=== PATIENT | male | born 1950 | race Hispanic/Latino ===

== ENCOUNTER 2017-11-05 18:29 | Observation (INO) | payer OTHER ==
[~2017-11-05] VITALS: Ht 170.2 cm; Wt 74.4 kg
[2017-11-05] MEDS ORDERED: SODIUM CHLORIDE 0.9% 1000ML 1,000 ML IV STA (18:32)
[2017-11-05] MEDS ORDERED: ASPIRIN 81 MG CHEW TAB PO ONE (18:45)
[2017-11-05 18:50] LABS: BASOPHILS % 0.2 % (0.0-1.0); EOSINOPHILS # (AUTO) 0.1 (0.0-0.4); EOSINOPHILS % 1.5 % (0.0-6.0); HEMATOCRIT 40.1 % (38.2-49.6); HEMOGLOBIN 13.9 g/dL (14.0-18.0); LYMPHOCYTES # (AUTO) 3.1 (1.0-3.2); LYMPHOCYTES % 35.5 % (18.0-39.1); MEAN CORPUSCULAR HEMOGLOBIN 33.1 pg (28-32); MEAN CORPUSCULAR HGB CONC 34.7 g/dL (31-35); MEAN CORPUSCULAR VOLUME 95.5 fL (81-99); MONOCYTES # (AUTO) 0.5 (0.2-0.8); MONOCYTES % 5.9 % (4.4-11.3); NEUTROPHILS # (AUTO) 4.9 (2.1-6.9); NEUTROPHILS % 56.4 % (38.7-80.0); PLATELET COUNT 181 x10e3/uL (140-360); RED CELL DISTRIBUTION WIDTH 12.8 % (11.7-14.4)
[2017-11-05 19:08] LABS: ALANINE AMINOTRANSFERASE 37 IU/L (0-55); ALBUMIN/GLOBULIN RATIO 1.3 (0.8-2.0); ALKALINE PHOSPHATASE 81 IU/L (40-150); ANION GAP 15.9 mmol/L (8-16); BLOOD UREA NITROGEN 16 mg/dL (7-26); BUN/CREATININE RATIO 15 (6-25); CALCIUM 9.2 mg/dL (8.4-10.2); CARBON DIOXIDE 21 mmol/L (22-29); CHLORIDE 108 mmol/L (98-107); CREATININE, SERUM 1.09 mg/dL (0.72-1.25); EST GLOMERULAR FILTRATION RATE > 60 ML/MIN (60-); GLUCOSE 92 mg/dL (74-118); POTASSIUM 3.9 mmol/L (3.5-5.1); SODIUM 141 mmol/L (136-145)
--- NOTE | 2017-11-05 19:42 | Diagnostic Imaging Report ---
EXAMINATION: CHEST SINGLE (PORTABLE) COMPARISON: None INDICATION: Trauma DISCUSSION: Frontal view of the chest obtained at 1913 hours. HEART AND MEDIASTINUM: The cardiomediastinal silhouette is unremarkable. LINES: None. LUNGS: The lungs are well inflated and clear. No infiltrates or pulmonary edema. PLEURA: No pleural effusion or pneumothorax. BONES AND SOFT TISSUES: No evidence of displaced fracture or focal osseous lesion. The soft tissues are normal. IMPRESSION: No acute traumatic pathology by x-ray. Signed by: Dr. Vimal Spencer MD on 11/05/2017 7:38 PM
--- NOTE | 2017-11-05 19:44 | Diagnostic Imaging Report ---
Ankle complete CPT CODE: 46792 HISTORY: Trauma TECHNIQUE: Three views right ankle obtained COMPARISON: None. FINDINGS: The distal tibia and fibula appear intact. Ankle mortise remains symmetric. There is lateral malleolar soft tissue swelling and edema about the tibiotalar joint. The calcaneus appears intact. The visualized portions of the midfoot and forefoot are intact. IMPRESSION: No evidence of acute fracture or dislocation involving the ankle. If there is persistent pain or clinical concern, recommend repeat imaging to identify any occult fractures. Signed by: Dr. Vimal Spencer MD on 11/05/2017 7:41 PM
--- NOTE | 2017-11-05 19:50 | Diagnostic Imaging Report ---
EXAMINATION: Head CT without contrast. HISTORY:Status post fall from ladder, syncope. COMPARISON:None. TECHNIQUE: Multidetector axial images were obtained from the foramen magnum to the vertex without contrast. The images were reconstructed using brain and bone algorithms. Thin section brain images were reformatted into coronal and sagittal planes. Intravenous contrast: None IMAGE QUALITY: Suboptimal evaluation particularly of the skull base and posterior fossa structures due to streak artifacts. FINDINGS: Skull/scalp: No lytic or blastic. lesions. No surgical changes. Parenchyma: No abnormal density. No acute hemorrhage, mass or acute major vascular territorial infarct. Arteries: No density suggestive of thrombosis. Dural sinuses: No abnormal density suggestive of thrombosis. Ventricles: No hydrocephalus or displacement. Extra-axial spaces: No abnormal density. Brain volume: Mild generalized cerebral volume loss. Craniocervical junction: No mass, Chiari malformation, or basilar invagination. Sella: No mass. Paranasal/mastoid sinuses: Partial opacification and sclerosis of right mastoid air cells. Mild mucosal thickening in bilateral ethmoid sinuses IMPRESSION: No acute intracranial abnormality. Mild generalized cerebral volume loss. Signed by: Dr. Whitney Dotson M.D. on 11/05/2017 7:47 PM
--- NOTE | 2017-11-05 19:55 | Diagnostic Imaging Report ---
History: Fall from ladder. Comparison studies: None Technique: Axial images were obtained through the cervical region.. Coronal and sagittal images reconstructed from the axial data.. Intravenous contrast: None Findings: Fractures: None. Soft tissue injuries: None. Atlantoaxial articulation: Intact. Alignment: Loss of normal cervical lordosis is either positional or due to muscle spasm. No scoliosis. Cervicomedullary junction: No abnormalities. The foramen magnum is patent. Soft tissues: No abnormalities. Vertebrae: No fractures, infection or neoplasm. Degenerative changes: C5-C6: Mild degenerative disc disease. Mild right foraminal stenosis due to facet and uncovertebral arthrosis. C6-C7: Moderate degenerative disc disease with decreased intervertebral disc space, endplate sclerosis and anterior vertebral osteophyte. No canal stenosis. No significant foraminal stenosis.. IMPRESSION: 1. No acute cervical spine fracture. Loss of normal cervical lordosis is either positional or due to muscle spasm. 2. Ligament, spinal cord and or vascular abnormalities cannot be excluded on the basis of this examination. 3. Mild cervical spondylosis as above. Signed by: Dr. Whitney Dotson M.D. on 11/05/2017 7:52 PM
[2017-11-05] MEDS ORDERED: IOPAMIDOL 370 MG/ML 200 ML INFUS..BTL INJ ONE (20:01)
[2017-11-05] MEDS ORDERED: SODIUM CHLORIDE 0.9% 100 ML ONE (20:02)
--- NOTE | 2017-11-05 20:31 | Diagnostic Imaging Report ---
CT angiogram of the chest, abdomen and pelvis. CPT code number: [id number] History: Fell off ladder (6 feet). Technique: Multidetector helical CT angiography was carried out from the thoracic inlet to the lesser trochanters before and following intravenous contrast administration. Thin section image collimation was utilized and 3-D images were postprocessed on a separate workstation. Parenchymal organ imaging will be limited by arterial phase of contrast administration. RADIATION DOSE: Total DLP: 804.52 mGy*cm Estimated effective dose: (DLP x 0.015 x size factor) mSv CTDIvol has been reviewed. It is below the limits set by the Radiation Protocol Committee (RPC). Comparison: None CT scan thorax: Thyroid/base of neck: Unremarkable. Pleura: No pleural effusion or pneumothorax. Calcified and noncalcified bilateral pleural plaques. Heart: Normal in size. No mediastinal fluid or air. Moderate burden of coronary artery atherosclerosis. Lymph nodes: No enlarged axillary, supraclavicular, mediastinal, or hilar lymph nodes.. Pulmonary vessels: Normal morphology. No filling defects.. Pulmonary parenchyma: Mild hyperinflation. No contusion or laceration. Mild bilateral apical pleural-parenchymal thickening. Mild bronchial wall thickening suggestive of chronic bronchitis. No mass. CT scan of the abdomen: Liver: There is an area of rounded hypoattenuation involving segments 4, 8, and 5. Attenuation before contrast is 36 Hounsfield units suggestive of fat. No evidence of enhancement on this exam. There is no displacement of the intrahepatic vasculature. This area measures approximately 9.6 x 10.4 cm. No perihepatic fluid. Low attenuating lesion in the lateral aspect of segment 5 measures 8 mm. Hypervascular blush in segment 8 measures 14 mm and has the appearance of a shunt. Spleen: No contusion or laceration. No splenomegaly. Pancreas: Mild fatty atrophy without mass or ductal dilatation. Adrenal glands: No evidence for mass.. Gallbladder: Present. No wall thickening, gallstone or ductal dilatation.. Retroperitoneum: No hemorrhage.. Kidneys: No renal calculus. The kidneys enhance symmetrically. No mass or hydronephrosis. Bowel and mesentery: Small bowel and large bowel are normal in diameter with normal wall thickness. The stomach appears normal. The appendix is not visualized and may be absent or collapsed. No free fluid or fluid collection. CT scan pelvis: Urinary bladder: Circumferential mural thickening. No perivesicular inflammation. The prostate gland is enlarged. No ureteral dilatation.. Lymph nodes: No lymphadenopathy. No free fluid or fluid collection. No free air. Bones: The hips are intact and normally positioned. No diastases of the pubic symphysis or sacroiliac joints. The shoulders, clavicles, and sternum are intact. Vertebral body heights are symmetric. No listhesis. There are no displaced rib fractures. CT angiography with 3-D reformations: 1. Aortic sinus: 3.8 cm. 2. Sinotubular junction: 2.6 x 3.0 cm. 3. Proximal ascending aorta:2.8 x 2.9 cm 4. Proximal aortic arch:2.9 cm 5. Mid aortic arch:2.8 cm 6. Distal aortic arch:2.4 cm 7. Descending thoracic aorta:2.4 x 2.4 cm 8. Aorta at the diaphragm:2.3 x 2.4 cm 9. Aorta at the celiac artery:2.2 x 2.2 cm 10. Aorta at the cranial most renal artery:1.9 cm 11. Aorta at the caudal-most renal artery:1.9 cm 12. Infrarenal aorta: 1.7 x 1.8 cm 13. Bifurcation:1.5 x 1.7 cm 14. Morphology:No evidence of mural hematoma. Mild burden of atherosclerotic plaque in the abdominal aorta. The innominate artery and left common carotid artery arise from a common trunk. There is no evidence of dissection. No periaortic inflammation. 15. Great vessels are normal in morphology arising from the aortic arch. 16. Celiac artery is normal in appearance. There is conventional hepatic artery branching. 17. SMA is normal in appearance and widely patent. 18. Renal arteries: A single artery supplies the right kidney. 2 arteries supply the left kidney. Both are widely patent. 19. The BENI is patent. 20. The right and left common iliac arteries each measure 1.2 cm. The internal/external iliac arteries and common femoral arteries are normal in morphology. IMPRESSION: 1. No evidence of aortic injury. Mild burden of atherosclerosis of the aorta. Moderate burden of coronary artery atherosclerosis 2. No evidence of pulmonary or pleural injury. 3. No solid or hollow organ injury in the abdomen or pelvis. 4. 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 Consider periodic surveillance with CT of the chest to confirm stability. 5. Mild pulmonary hyperinflation suggestive of COPD. Mild chronic bronchitis. 6. Geographic area of hypoattenuation in the liver is suggestive of fat deposition. There is no secondary signs of hepatic injury. Further evaluation of the liver can be made with MRI on an outpatient basis. 7. Shunt and potential cyst in the liver as described above. 8. Prostate hypertrophy and bladder wall thickening from outlet obstruction. 9. No evidence of displaced osseous fractures. No compression deformities or listhesis of the spine. Signed by: Dr. Vimal Spencer MD on 11/05/2017 8:27 PM
[2017-11-05 21:01] LABS: CREATINE KINASE 84 IU/L (30-200)
[2017-11-05 21:37] LABS: CLARITY,URINE CLEAR (CLEAR); COLOR,URINE YELLOW (YELLOW); KETONES,URINE TRACE (NEGATIVE); LEUKOCYTE ESTERASE ,URINE NEGATIVE (NEGATIVE); NITRITE,URINE NEGATIVE (NEGATIVE); PROTEIN,URINE DIPSTICK NEGATIVE (NEGATIVE)
[2017-11-05 21:38] LABS: BILIRUBIN,URINE NEGATIVE (NEGATIVE); URINE UROBILINOGEN 0.2 mg/dL (0.2 - 1)
[2017-11-05] MEDS: SODIUM CHLORIDE 0.9% 1000ML 1,000 ML IV SCH (21:48)
[2017-11-05 21:50] LABS: EPITHELIAL CELLS,URINE RARE /LPF; HYALINE CASTS 0-1 (0-1)
[2017-11-05] MEDS: MORPHINE SULFATE 2 MG/ML SYR IV PRN (22:49)
[2017-11-05] MEDS: ONDANSETRON HCL INJ 2 MG/ML VIAL IV PRN (22:49)
[2017-11-05 22:54] VITALS: BP 139/78
[2017-11-05 23:07] VITALS: BP 139/78
[2017-11-06] VITALS (8 sets, daily range): BP systolic 119–151; BP diastolic 71–81
[2017-11-06 02:31] LABS: CREATINE KINASE 107 IU/L (30-200)
[2017-11-06] MEDS: SODIUM CHLORIDE 0.9% 1000ML 1,000 ML IV SCH ×3 (04:56→20:56)
[2017-11-06 05:03] LABS: BASOPHILS % 0.3 % (0.0-1.0); EOSINOPHILS # (AUTO) 0.2 (0.0-0.4); EOSINOPHILS % 2.2 % (0.0-6.0); HEMATOCRIT 34.9 % (38.2-49.6); LYMPHOCYTES # (AUTO) 3.1 (1.0-3.2); LYMPHOCYTES % 40.4 % (18.0-39.1); MEAN CORPUSCULAR HEMOGLOBIN 33.2 pg (28-32); MEAN CORPUSCULAR HGB CONC 34.4 g/dL (31-35); MEAN CORPUSCULAR VOLUME 96.7 fL (81-99); MONOCYTES # (AUTO) 0.5 (0.2-0.8); MONOCYTES % 6.9 % (4.4-11.3); NEUTROPHILS # (AUTO) 3.9 (2.1-6.9); NEUTROPHILS % 50.1 % (38.7-80.0); PLATELET COUNT 162 x10e3/uL (140-360); RED BLOOD COUNT 3.61 x10e6/uL (4.3-5.7); RED CELL DISTRIBUTION WIDTH 12.9 % (11.7-14.4)
[2017-11-06 05:27] LABS: ALANINE AMINOTRANSFERASE 28 IU/L (0-55); ALBUMIN 3.2 g/dL (3.5-5.0); ALBUMIN/GLOBULIN RATIO 1.3 (0.8-2.0); ALKALINE PHOSPHATASE 66 IU/L (40-150); BLOOD UREA NITROGEN 15 mg/dL (7-26); BUN/CREATININE RATIO 17 (6-25); CALCIUM 8.2 mg/dL (8.4-10.2); CARBON DIOXIDE 23 mmol/L (22-29); CHLORIDE 111 mmol/L (98-107); CREATININE, SERUM 0.88 mg/dL (0.72-1.25); EST GLOMERULAR FILTRATION RATE > 60 ML/MIN (60-); GLUCOSE 101 mg/dL (74-118); SODIUM 141 mmol/L (136-145)
[2017-11-06 06:31] LABS: CREATINE KINASE 123 IU/L (30-200)
[2017-11-06] MEDS: ONDANSETRON HCL INJ 2 MG/ML VIAL IV PRN (15:16)
[2017-11-06] MEDS: MORPHINE SULFATE 2 MG/ML SYR IV PRN (15:16)
[2017-11-06] MEDS: FAMOTIDINE 20 MG TAB PO SCH (15:32)
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
[2017-11-07] VITALS: BP 125/74
[2017-11-07 04:00] VITALS: BP 118/71
[2017-11-07 08:00] VITALS: BP 127/71
[2017-11-07] MEDS: FAMOTIDINE 20 MG TAB PO SCH (08:12)
[2017-11-07] MEDS: SODIUM CHLORIDE 0.9% 1000ML 1,000 ML IV SCH (08:12)
[2017-11-07 12:07] VITALS: BP 127/80
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
== END 2017-11-07 12:50 | disposition home or self-care (01) ==
LOC: ER 18:35 → ERHOLD 21:07 → IMCU 22:04
PROVIDERS: ADMIT Internal Medicine; ATTEND Internal Medicine
DX: S93.401A Sprain of unspecified ligament of right ankle, initial encounter (principal); R55 Syncope and collapse; W11.XXXA Fall on and from ladder, initial encounter; Y93.H9 Activity, other involving exterior property and land maintenance, building and construction; Y92.017 Garden or yard in single-family (private) house as the place of occurrence of the external cause; F17.210 Nicotine dependence, cigarettes, uncomplicated; Z77.090 Contact with and (suspected) exposure to asbestos; E66.3 Overweight; Z68.25 Body mass index [BMI] 25.0-25.9, adult; I07.1 Rheumatic tricuspid insufficiency
CPT/HCPCS: 36415; 70450; 71045; 71275; 72125; 73610; 74174; 80053 ×2; 81001; 82550 ×2; 82553 ×2; 84484 ×2; 85025 ×2; 93005; 93306; 93880; 97139; 99284; G0378 ×3; J2270 ×2; J2405 ×2; J7030 ×3; J7050; Q9967